=== PATIENT | female | born 1995 | race African-American/Black ===

== ENCOUNTER 2017-08-19 11:47 | Emergency (ER) | payer MEDICAID ==
[~2017-08-19] VITALS: Ht 177.8 cm; Wt 81.6 kg
[2017-08-19 11:58] VITALS: BP 138/72
[2017-08-19] MEDS ORDERED: Tetanus/Diptheria/Pertussis Vaccine 0.5ml Syr IM ONE (12:30)
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
[2017-08-19] MEDS ORDERED: CEPHALEXIN500 MG ORAL (12:48)
[2017-08-19] MEDS ORDERED: SILVADENE20 GM TP (12:53)
[2017-08-19 13:15] VITALS: BP 113/79
== END 2017-08-19 13:15 | disposition home or self-care (01) ==
LOC: EMR 12:50
DX: T23.071A Burn of unspecified degree of right wrist, initial encounter (principal); X16.XXXA Contact with hot heating appliances, radiators and pipes, initial encounter; Y92.89 Other specified places as the place of occurrence of the external cause; Z23 Encounter for immunization
CPT/HCPCS: 16020; 90471; 90715; 99284; Z7502